=== PATIENT | female | born 1935 | race African-American/Black ===

== ENCOUNTER 2024-01-05 07:35 | Emergency (ER) | payer BC ==
[~2024-01-05] VITALS: Ht 160 cm; Wt 50.0 kg
[2024-01-05] MEDS ORDERED: ECOT81TA5 PO (07:43)
[2024-01-05] MEDS ORDERED: AMLO25TA PO (07:43)
[2024-01-05] MEDS ORDERED: LOSA50TA28 PO (07:43)
[2024-01-05 09:36] LABS: BASO # 0.1 10^3/uL (0.0-0.2); BASO % 0.8 % (0.0-1.0); EOS # 0.1 10^3/uL (0.0-0.5); EOS % 0.9 % (0.0-3.0); HEMATOCRIT 40.8 % (36.0-47.0); HEMOGLOBIN 13.3 g/dl (12.0-15.5); LYMPH # 1.7 10^3/uL (1.5-5.0); LYMPH % 25.6 % (24.0-44.0); MEAN CORPUSCULAR HEMOGLOBIN 27.9 pg (27.0-33.0); MEAN CORPUSCULAR HGB CONC 32.6 g/dl (32.0-36.5); MEAN CORPUSCULAR VOLUME 85.5 fl (80.0-96.0); MONO # 0.3 10^3/uL (0.0-0.8); MONO % 4.7 % (2.0-8.0); NEUTROPHILS # 4.5 10^3/uL (1.5-8.5); NEUTROPHILS % 67.8 % (36.0-66.0); PLATELET COUNT, AUTOMATED 337 10^3/uL (150-450); RED BLOOD COUNT 4.77 10^6/uL (4.00-5.40); WHITE BLOOD COUNT 6.6 10^3/uL (4.0-10.0)
[2024-01-05 09:43] LABS: INR 0.89; PROTHROMBIN TIME 12.3 SECONDS (12.5-14.5)
[2024-01-05] MEDS: ACETAMINOPHEN 325 MG TAB PO ONE (09:46)
[2024-01-05 11:05] VITALS: BP 112/64; TEMP 97.9; O2SAT 98
[2024-01-05 11:06] LABS: ETHYL ALCOHOL (ETHANOL) 0.138 % (0.000-0.010)
[2024-01-05 11:08] LABS: ALKALINE PHOSPHATASE 69 U/L (35-104); ALT/SGPT 12 U/L (7.0-40); AST/SGOT 14 U/L (<34); BILIRUBIN,DIRECT < 0.1 MG/DL (<0.4); BILIRUBIN,TOTAL 0.2 MG/DL (0.3-1.2); BLOOD UREA NITROGEN 14 MG/DL (9-23); CALCIUM LEVEL 10.1 MG/DL (8.3-10.6); CARBON DIOXIDE LEVEL 23 MMOL/L (20-31); CHLORIDE LEVEL 108 MMOL/L (98-107); CREATININE FOR GFR 0.52 MG/DL (0.55-1.30); GLOMERULAR FILTRATION RATE > 60.0 (>32); GLUCOSE, FASTING 80 MG/DL (74-106); POTASSIUM SERUM 3.5 MMOL/L (3.5-5.1); SODIUM LEVEL 143 MMOL/L (136-145); TOTAL PROTEIN 8.1 G/DL (5.7-8.2)
== END 2024-01-05 11:42 | disposition home or self-care (01) ==
LOC: M ED 07:35
DX: Z04.3 Encounter for examination and observation following other accident (principal); W19.XXXA Unspecified fall, initial encounter; Y92.009 Unspecified place in unspecified non-institutional (private) residence as the place of occurrence of the external cause; Y93.89 Activity, other specified; Y99.9 Unspecified external cause status; F10.129 Alcohol abuse with intoxication, unspecified; M47.892 Other spondylosis, cervical region; I10 Essential (primary) hypertension